=== PATIENT | male | born 2000 | race African-American/Black ===

== ENCOUNTER 2021-10-24 02:39 | Emergency (ER) | payer OTHER, SELFPAY ==
[2021-10-24 02:48] VITALS: BP 149/87; PULSE 81; RESP 16; TEMP 36.4; O2SAT 97
--- NOTE | 2021-10-24 03:11 | ED.MALEGU ---
HPI - Male Genitourinary General Chief complaint: Urogenital-Male Stated complaint: STD Check Time Seen by Provider: 10/24/21 03:15 Source: patient Mode of arrival: ambulatory Limitations: no limitations History of Present Illness HPI Narrative: This is a 21-year-old male that presents to the emergency department for an STD check. Reports he was recently with another male who has been reported to possibly have an STD. He is unsure which STD. He would like to be checked for all STDs. He is not currently having any symptoms. Denies dysuria, abnormal drainage, or rashes. Related Data Allergies Allergy/AdvReac Type Severity Reaction Status Date / Time No Known Allergies Allergy Verified 10/24/21 02:50 Review of Systems Review of Systems: CONSTITUTIONAL: Denies fever GENITOURINARY: Denies dysuria SKIN: Denies rash All systems reviewed & are unremarkable except as noted in HPI and below PMFSH Past Medical History Medical History (Updated 10/24/21 @ 03:15 by Prachi Lebron PA-C) History of asthma Social History Social History (Updated 10/24/21 @ 03:12 by Prachi Lebron PA-C) Substance use: never Exam Narrative: GENERAL: Well-appearing, well-nourished, and in no acute distress. HEAD: Normocephalic, atraumatic. EYES: EOMI. CHEST: No respiratory distress HEART: Regular rate EXTREMITIES: Normal range of motion. No edema. SKIN: Warm, dry, no rash. NEURO: No focal deficits. Alert and oriented x3. PSYCH: Normal mood and affect Course Vital Signs Vital signs: Vital Signs Temperature 97.5 F L 10/24/21 02:48 Pulse Rate 81 10/24/21 02:48 Respiratory Rate 16 10/24/21 02:48 Blood Pressure 149/87 H 10/24/21 02:48 Pulse Oximetry 97 10/24/21 02:48 Oxygen Delivery Room Air 10/24/21 02:48 Temperature 97.5 F L 10/24/21 02:48 Pulse Rate 81 10/24/21 02:48 Respiratory Rate 16 10/24/21 02:48 Blood Pressure 149/87 H 10/24/21 02:48 Pulse Oximetry 97 10/24/21 02:48 Oxygen Delivery Room Air 10/24/21 02:48 MDM - Male Genitourinary MDM Narrative Medical decision making narrative: Patient presents to the emergency department for an STD check. Reports a partner he was recently with reportedly tested positive for an STD. He is unsure which STD. He does not currently have any symptoms. Patient will be tested for chlamydia, gonorrhea, trichomonas, syphilis, and HIV. He does not wish to be presumptively treated for any certain STD at this time. Instructed to follow-up for his results and further management. Lab Data Attestation: I reviewed the patient's lab results. Labs: Lab Results 10/24/21 10/24/21 10/24/21 Range/Units 02:52 02:52 02:52 Urine Color Yellow (Yellow) Urine Appearance Clear (Clear) Urine pH 7.0 (5.0-9.0) Ur Specific [place] 1.025 (1.001-1.035) Urine Protein Trace (Negative) mg/dL Urine Glucose (UA) Negative (Negative) mg/dL Urine Ketones 2+ H (Negative) mg/dL Ur Blood (Man) Negative (Negative) Urine Nitrate Negative (Negative) Urine Bilirubin 1+ H (Negative) Urine Urobilinogen 1.0 (<2.0) mg/dL Leukocyte Esterase Rfl Negative (Negative) CROW/UL C.trachomatis RNA (TMA) Pending N.gonorrhoeae RNA (TMA) Pending T. vaginalis Amp RNA Pending Critical Care Time Critical Care Time Critical Care Time: No Discharge Plan Discharge Clinical Impression: Concern about STD in male without diagnosis Patient Disposition: Home, Self-Care Condition: Stable Instructions: Sexually Transmitted Diseases (ED), Safe Sex Practices (ED) Additional Instructions: Return to the ER if you experience fever, abdominal pain with nausea and vomiting, pain or burning with urination, blood in the urine or any other symptoms that are concerning to you Follow up for results of your testing and further management Follow-up/Referrals: PHYSICIAN NOT ON STAFF,NONSTAFF [Primary Care Pro
[2021-10-24 03:20] LABS: Appearance Urine Clear (Clear); Bilirubin Urine 1+ (Negative); Blood Urine Negative (Negative); Color Urine Yellow (Yellow); Glucose Urine UA Negative (Negative); Ketones Urine 2+ mg/dL (Negative); Leukocyte Esterase Ur Negative LEU/UL (Negative); Nitrate Urine Negative (Negative); Protein Urine Trace mg/dL (Negative); Specific Grav Ur 1.025 (1.001-1.035)
[2021-10-24 03:26] LABS: Mucus Urine Moderate /lpf; RBC Urine 0-2 /hpf (0-2); WBC Urine 0-3 /hpf
[2021-10-24 03:35] LABS: Add Urine Microscopic? YES
[2021-10-24 04:36] LABS: HIV 1/2 Ab P24 Ag Result Negative (Negative)
[2021-10-24 07:23] LABS: Rapid Plasma Reagin Non-Reactive (NonReactive)
== END 2021-10-24 03:49 | disposition home or self-care (01) ==
LOC: ANHED 03:43
PROVIDERS: Physician Assistant; Emergency Provider Emergency Medicine
DX: Z20.2 Contact with and (suspected) exposure to infections with a predominantly sexual mode of transmission (principal); J45.909 Unspecified asthma, uncomplicated
CPT/HCPCS: 36415; 81001; 86592; 86703; 87491; 87591; 87661; 99283; G0432